=== PATIENT | female | born 1975 | race Two or more races ===

== ENCOUNTER 2020-05-16 07:37 | Day surgery (SDC) | payer BC ==
[~2020-05-16] VITALS: Ht 157.5 cm; Wt 72.6 kg
[~2020-05-16 07:37] MED LIST: ULTRAM50 MG PO
[2020-05-16 08:09] LABS: HEMATOCRIT 42.6 % (36.0-48.0); HEMOGLOBIN 14.1 g/dL (12-16); MCH 28.7 pg (26.0-34.0); MCHC 33.1 g/dL (31.0-37.0); MCV 86.6 fL (80.0-100.0); MEAN PLATELET VOLUME 9.7 fL (7.4-10.4); RBC 4.92 10x6/uL (4.00-5.40); RDW 14.3 % (11.5-14.5); WBC 7.2 10x3/uL (4.8-10.8)
[2020-05-16 08:24] LABS: HCG SERUM NEGATIVE (NEGATIVE)
[2020-05-16 08:43] VITALS: BP 135/78; Ht 157.5 cm; Wt 72.6 kg
[2020-05-16] MEDS ORDERED: PERCOCET 10-321 EAC1 PO (10:29)
[2020-05-16] MEDS ORDERED: ZOFRAN ODT4 MG/UDTAB PO (10:29)
[2020-05-16] MEDS ORDERED: VISTARIL50 MG PO (10:29)
[2020-05-16] MEDS ORDERED: TORADOL10 MG PO (10:29)
--- NOTE | 2020-05-16 14:42 | NUR ---
1443 RECEIVED REPORT FROM [facility]. PT AWAKE. AT BEDSIDE AND ANSWERS FOR .
--- NOTE | 2020-05-16 15:40 | NUR ---
1540 PT MEDICATED FOR NAUSEA BY . HE STATED HE GAVE HER A ZOFRAN TABLET. IVF GIVEN.
--- NOTE | 2020-05-16 16:30 | NUR ---
1600 ASSISTED UP WITH WALKER. PT NAUSEATED AND SLIGHTLY PALE AND WEAK. OFFERED PT A BEDSIDE COMMODE. PT MOVEDS VERY SLOWLY BUT ABLE TO MAKE IT TO BATHROOM. VOIDED X1. 1620 PT DRESSED AND SITTING UP IN W/C WHILE GOT CAR. PT VOMITED APPROX 200ML CLEAR FLUID. PT APPOLIGIZED FOR VOMITING. ASSITED TO CAR AND PT ABLE TO GET INTO CAR. INSTRUCTIONS GIVEN EARLIER TO .
--- NOTE | 2020-05-17 20:26 | OP ---
PATIENT NAME: EMILY FINCH MEDICAL RECORD: [id number] :71 LOCATION:[facility] ADMISSION DATE: SURGEON: JACEK OCASIO DO DATE OF OPERATION: 05/16/2020 PROCEDURE PERFORMED: Left anterior cruciate ligament reconstruction with autograft quad tendon and medial meniscal repair with left knee arthroscopy. PREOPERATIVE DIAGNOSIS: Left knee complete anterior cruciate ligament tear and medial meniscal tear. POSTOPERATIVE DIAGNOSIS: Left knee complete anterior cruciate ligament tear and medial meniscal tear. INDICATIONS: Ms. Finch is a 45-year-old female who was dancing and sustained a left ACL rupture and medial meniscal tear. She got an MRI upon returning from vacation and showed the above findings. She was informed that we could not do anything in rehabilitation, but we need to fix the meniscus. She decided she wanted the ACL done as well due to the instability. She is aware of the risks of this including infection, bleeding, arthrofibrosis of the knee, continued pain, need for further surgery, further tear or retear of the meniscus, graft site pain, blood clots and even and she signed the consent. SURGEON: Jacek Ocasio DO DESCRIPTION OF PROCEDURE: The patient was given a block by anesthesia in preoperative area and taken to the operative suite, laid in supine position, given general anesthetic and LMA was placed. She was also given 2 grams of Ancef. The left lower extremity was then prepped and draped in sterile fashion. Timeout was performed. Everyone was in agreement with the correct site, side, patient, and procedure. I then began by making an incision over the quad tendon and made careful dissection to the quad tendon, took the center 10 mm out, approximately 7 mm thick and 90 in length. I then put the graft on the back table. Jaylen Davila, certified ophthalmology surgical technician, then prepared the graft while I scoped the knee, I made incision of the lateral portal, made a trocar into the joint, and then a saw nothing in the suprapatellar pouch. 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 Nothing extended on the medial or lateral gutters. I then made the medial portal with an 18-gauge spinal needle and 11-blade scalpel. Trocar brought in and then with a probe, saw the medial meniscal tear on the undersurface of the posterior meniscus to the middle aspect, I then brought in 4 Fast-Fixes and fixed it making a nice repair. I then cleaned out the notch and inspected the lateral meniscus. There is no cartilage loss there and there is no meniscal tear. The medial compartment was also free of cartilage loss. I then cleaned out the notch and marked the tunnel site for the femur, brought in the femoral guide and drilled from the lateral femur just above the epicondyle and then a FlipCutter brought into reverse and went back through the tunnel a 25 mm. I then cleaned that out and set a nitinol wire through the guide and brought it out through the medial portal and secured into place. I then cleaned out the tunnel again with a shaver. I then used the medial portal and put the guide in for the tibial tunnel and made an incision on the inferior portion of the knee just medial to the tibial tuberosity and brought the guide in, brought the pin in, and once it was in adequate position using the 10 and brought the 10 reamer up through the knee. I then cleaned out the tunnel. We then passed the graft, the inline ToggleLoc broke. I then brought the graft back through and re-brought the nitinol wire back through as OPERATIVE REPORT [id number] EMILY FINCH and we resutured another ToggleLoc on with a medial portal pulling through. We then got the graft up into the femur and cinched it down good up into the femoral tunnel. I then used the tunnel lock system on the tibia and tied it together and then pulled tension on it, ranged the knee and malleted the TunneLoc into place. I then tested the knee after cycling and had a negative drawer and negative Kashif's. I then cut the excess sutures and looked at the ACL in the knee and it was very well positioned in the joint and very taut. The tourniquet had been used throughout the procedure, it was inflated prior to starting and was up for 90 minutes at 350 mmHg. We did exsanguinate the left lower extremity prior to doing that. Blood loss was minimal. I then closed the graft site with 2-0 Vicryl in an inverted interrupted fashion, put a ZipLine on it. The tibial tunnel was closed with 2-0 Vicryl in an inverted interrupted fashion, 4-0 Monocryl running on it and then 4-0 Monocryl in inverted interrupted fashion on the other sites. She was then dressed with Steri-Strips, Adaptic, 4 x 4, ABD, cast padding and Hans wrap and put in a hinged knee brace. She was awakened and taken to recovery in stable condition. We did use PRP as well as it was drawn during the procedure and spun down. We soaked the ACL graft in it and injected the remaining into the knee. She was then awakened and taken to recovery in stable condition. BLOOD LOSS: Minimal. COMPLICATIONS: None. TRANSINT:[id number] Voice Confirmation ID: [id number] DOCUMENT ID: [id number] JACEK OCASIO DO at 2026 CC: [id number] DICTATION DATE: 05/16/20 1457 [facility] ATTENDANT: 05/16/20 2349 [facility] 05/16/20 [facility] [address] [place] [address]
== END 2020-05-16 16:25 | disposition home or self-care (01) ==
LOC: D.OPS 07:37
PROVIDERS: Anesthesiology; ATTEND Orthopaedic Surgery
DX: S83.512A Sprain of anterior cruciate ligament of left knee, initial encounter (principal); X58.XXXA Exposure to other specified factors, initial encounter; S83.242A Other tear of medial meniscus, current injury, left knee, initial encounter; M25.562 Pain in left knee